=== PATIENT | male | born 1955 | race Caucasian/White ===

== ENCOUNTER 2021-04-11 23:23 | Emergency (ER) | payer OTHER ==
[~2021-04-11] VITALS: Ht 172.7 cm; Wt 97.1 kg
[2021-04-11] MEDS ORDERED: ASA81BEC PO (23:36)
[2021-04-11] MEDS ORDERED: LISINOPRIL10 MG PO (23:36)
[2021-04-12 00:19] LABS: ABSOLUTE BASOPHILS 0.1 thou/uL (0.0-0.2); ABSOLUTE EOSINOPHILS 0.1 thou/uL (0.0-0.7); ABSOLUTE LYMPHOCYTES 2.5 thou/uL (0.8-5.3); ABSOLUTE MONOCYTES 0.5 thou/uL (0.0-1.2); ABSOLUTE NEUTROPHILS 3.2 thou/uL (1.6-8.1); BASOPHILS 0.9 %; EOSINOPHILS 1.7 %; HEMATOCRIT 40.9 % (42.0-52.0); HEMOGLOBIN 13.5 gm/dL (14.0-18.0); LYMPHOCYTES 39.3 %; MCH 30.5 pg (26.0-34.0); MCHC 33.1 g/dL (28.0-37.0); MCV 92.2 fL (80.0-100.0); MONOCYTES 7.7 %; MPV 7.7 fl. (7.2-11.1); NUCLEATED RBCS 0 /100WBC; PLATELET COUNT* 242 thou/uL (150-400); POLYS 50.4 %; RBC 4.43 mil/uL (4.50-6.00); WBC 6.3 thou/uL (4.0-11.0)
[2021-04-12 00:25] LABS: BE -4.6 mmol/L (-2 to +3); PCO2 29.7 mmHg (35.0-45.0); PO2 84.5 mmHg (75.0-100.0); pH 7.415 (7.340-7.450)
[2021-04-12 00:40] LABS: CALCIUM 7.7 mg/dL (8.5-10.1); POTASSIUM 3.6 mmol/L (3.5-5.1)
[2021-04-12 00:44] LABS: ALBUMIN 3.4 g/dL (3.4-5.0); MAGNESIUM 1.8 mg/dL (1.8-2.4); TOTAL BILIRUBIN 0.3 mg/dL (<0.1-1.0); TOTAL PROTEIN 7.4 g/dL (6.4-8.2)
[2021-04-12 04:39] LABS: URINE BILIRUBIN NEGATIVE (Negative); URINE BLOOD NEGATIVE (Negative); URINE CLARITY CLEAR; URINE COLOR YELLOW; URINE GLUCOSE-RANDOM NEGATIVE (Negative); URINE KETONES NEGATIVE (Negative); URINE LEUKOCYTES-REFLEX NEGATIVE (Negative); URINE NITRITE-REFLEX NEGATIVE (Negative); URINE PROTEIN NEGATIVE (Negative); URINE SPECIFIC GRAVITY <= 1.005 (1.005-1.030); URINE UROBILINOGEN 0.2 E.U./dl (0.2-1.0)
[2021-04-12 05:31] VITALS: BP 113/83
--- NOTE | 2021-04-12 09:20 | EKG ---
[place] [address] ELECTROCARDIOGRAM REPORT Name: RAS DÍAZ Room: [facility]#: [id number] Admission: 04/11/21 Attend Phys: Discharge: 04/12/21 Date of : 57 Date of Service: 04/11/21 2332 Report #: [id number] THIS REPORT FOR: //name// [facility] ED Test Date: 2021-04-11 Test Time: 23:32:54 Pat Name: RAS ARJUN Department: Room: Gender: Medical Facilities Section Director: [place] : 1955 Requested By: Barbara Martinez Order Number: [id number] MD: Salvador Kelly Measurements Intervals [place] Rate: 91 P: 31 AK: 190 QRS: 38 QRSD: 100 T: 59 QT: 362 QTc: 446 Interpretive Statements Sinus rhythm Ventricular premature complex Nonspecific T abnormalities, inferior leads Baseline wander in lead(s) I,II,aVR Compared to ECG 03/12/2009 10:36:59 Ventricular premature complex(es) now present Electronically Signed On 04-12-2021 9:20:30 CDT by Salvador Kelly [email or web address] <ELECTRONICALLY SIGNED> By: Salvador Kelly MD, [facility] 04/12/21 0920 2332 2332 Salvador Kelly MD, [facility] /EPI
== END 2021-04-12 05:32 | disposition home or self-care (01) ==
LOC: M.ERS 23:23
PROVIDERS: Personal Emergency Response Attendant
DX: F10.129 Alcohol abuse with intoxication, unspecified (principal); Z20.822 Contact with and (suspected) exposure to COVID-19; Z79.899 Other long term (current) drug therapy